=== PATIENT | female | born 1945 | race Caucasian/White ===

== ENCOUNTER 2021-04-19 18:47 | Inpatient (IN) | payer OTHER ==
[~2021-04-19] VITALS: Ht 162.6 cm; Wt 78.0 kg
[~2021-04-19 18:47] MED LIST: ASPIRIN EC81 MG PO; ATORVASTATIN CA20 MG PO; LOPRESSOR 25 MG25 MG PO; MACROBID 100 M100 M1 PO; NORVASC 5 MG TAB5 MG PO
[2021-04-19 19:32] LABS: HEMOGLOBIN 12.8 gm/dl (12.3-15.3); RED BLOOD COUNT 4.5 M/UL (4.00-5.10); WHITE BLOOD COUNT 4.3 K/UL (4.5-11.0)
[2021-04-19 20:04] LABS: BUN/CREATININE RATIO 15 (0-10)
[2021-04-20 05:13] LABS: HEMOGLOBIN 12.7 gm/dl (12.3-15.3); RED BLOOD COUNT 4.6 M/UL (4.00-5.10); WHITE BLOOD COUNT 2.9 K/UL (4.5-11.0)
[2021-04-20] MEDS ORDERED: DRISDOL1250 MCG PO (08:58)
[2021-04-20] MEDS ORDERED: KLONOPIN1 MG PO (08:58)
[2021-04-20] MEDS ORDERED: ZOLOFT50 MG PO (08:59)
[2021-04-20] MEDS ORDERED: ULTRAM50 MG PO (08:59)
[2021-04-20] MEDS ORDERED: NEURONTIN800 MG PO (08:59)
[2021-04-20] MEDS ORDERED: LIPITOR TAB 2020 MG PO (09:00)
[2021-04-20] MEDS ORDERED: PROAIR HFA8.5 GM INH (09:00)
[2021-04-20] MEDS ORDERED: LOPRESSOR 25 MG25 MG PO (09:01)
--- NOTE | 2021-04-21 02:36 | NUR ---
NOTIFIED PROJECT DEVELOPMENT DIRECTOR THAT PATIENT HAD AN ORDER FOR CONTINUOUS TELEMETRY AND PULSE OX. PROJECT DEVELOPMENT DIRECTOR STATED THAT WE WERE STILL OUT OF CONTINOUS PULSE OX CORDS.
[2021-04-22 14:08] LABS: HEMOGLOBIN 13.3 gm/dl (12.3-15.3); RED BLOOD COUNT 4.57 M/UL (4.00-5.10); WHITE BLOOD COUNT 4.4 K/UL (4.5-11.0)
[2021-04-23 09:07] LABS: HEMOGLOBIN 12.7 gm/dl (12.3-15.3); RED BLOOD COUNT 4.41 M/UL (4.00-5.10)
[2021-04-23 09:09] LABS: WHITE BLOOD COUNT 7.1 K/UL (4.5-11.0)
[2021-04-24 03:23] LABS: HEMOGLOBIN 12.1 gm/dl (12.3-15.3); RED BLOOD COUNT 4.19 M/UL (4.00-5.10); WHITE BLOOD COUNT 5.7 K/UL (4.5-11.0)
[2021-04-25 06:04] LABS: HEMOGLOBIN 12.4 gm/dl (12.3-15.3); RED BLOOD COUNT 4.32 M/UL (4.00-5.10); WHITE BLOOD COUNT 6.8 K/UL (4.5-11.0)
[2021-04-26 05:27] LABS: HEMOGLOBIN 12.2 gm/dl (12.3-15.3); RED BLOOD COUNT 4.2 M/UL (4.00-5.10)
[2021-04-26 09:03] LABS: BUN/CREATININE RATIO 35 (0-10)
[2021-04-27 04:25] LABS: HEMOGLOBIN 12.3 gm/dl (12.3-15.3); RED BLOOD COUNT 4.26 M/UL (4.00-5.10)
[2021-04-27 05:08] LABS: BUN/CREATININE RATIO 29 (0-10)
[2021-04-28 05:08] LABS: HEMOGLOBIN 12.4 gm/dl (12.3-15.3); RED BLOOD COUNT 4.34 M/UL (4.00-5.10); WHITE BLOOD COUNT 7.8 K/UL (4.5-11.0)
[2021-04-28 05:40] LABS: BUN/CREATININE RATIO 28 (0-10)
--- NOTE | 2021-04-28 11:45 | NUR ---
SPOKE WITH DR. DAN ABOUT PATIENT. STATED THAT SINCE PATIENT HAS HAD LITTLE TO NO RESPIRATORY IMPROVEMENT SINCE THIS PAST WEEKEND, SHE WOULD FEEL MORE COMFORTABLE PLACING PATIENT IN ICU TO BE MORE CLOSELY MONITORED. MD SPOKE WITH PATIENT'S FAMILY ABOUT POSSIBLE TRANSFER ONCE ICU BED BECAME AVAILABLE.
--- NOTE | 2021-04-28 14:26 | NUR ---
RN NOTIFIED PATIENT'S DAUGHTER CALEB OF PATIENT TRANSFER TO ICU AND TOLD DAUGHTER WHAT ROOM SHE WAS IN.
[2021-04-29 05:16] LABS: HEMOGLOBIN 12.1 gm/dl (12.3-15.3); RED BLOOD COUNT 4.22 M/UL (4.00-5.10); WHITE BLOOD COUNT 7.7 K/UL (4.5-11.0)
[2021-04-29 05:40] LABS: BUN/CREATININE RATIO 31 (0-10)
[2021-04-30 05:34] LABS: HEMOGLOBIN 11.8 gm/dl (12.3-15.3); RED BLOOD COUNT 4.09 M/UL (4.00-5.10); WHITE BLOOD COUNT 6.5 K/UL (4.5-11.0)
[2021-04-30 05:59] LABS: BUN/CREATININE RATIO 33 (0-10)
[2021-05-01 04:17] LABS: HEMOGLOBIN 12.1 gm/dl (12.3-15.3); RED BLOOD COUNT 4.19 M/UL (4.00-5.10); WHITE BLOOD COUNT 7.7 K/UL (4.5-11.0)
[2021-05-01 04:30] LABS: BUN/CREATININE RATIO 34 (0-10)
[2021-05-02 05:26] LABS: HEMOGLOBIN 12.5 gm/dl (12.3-15.3); RED BLOOD COUNT 4.32 M/UL (4.00-5.10); WHITE BLOOD COUNT 9.4 K/UL (4.5-11.0)
[2021-05-02 06:00] LABS: BUN/CREATININE RATIO 41 (0-10)
[2021-05-03 05:58] LABS: HEMOGLOBIN 12.9 gm/dl (12.3-15.3); RED BLOOD COUNT 4.49 M/UL (4.00-5.10); WHITE BLOOD COUNT 9.5 K/UL (4.5-11.0)
[2021-05-03 06:23] LABS: BUN/CREATININE RATIO 46 (0-10)
[2021-05-04 05:13] LABS: HEMOGLOBIN 13.2 gm/dl (12.3-15.3); RED BLOOD COUNT 4.52 M/UL (4.00-5.10); WHITE BLOOD COUNT 9.2 K/UL (4.5-11.0)
[2021-05-05 06:01] LABS: HEMOGLOBIN 13.8 gm/dl (12.3-15.3); RED BLOOD COUNT 4.72 M/UL (4.00-5.10); WHITE BLOOD COUNT 10.5 K/UL (4.5-11.0)
[2021-05-06 05:57] LABS: HEMOGLOBIN 13.4 gm/dl (12.3-15.3); RED BLOOD COUNT 4.57 M/UL (4.00-5.10); WHITE BLOOD COUNT 9.8 K/UL (4.5-11.0)
[2021-05-06 06:01] LABS: BUN/CREATININE RATIO 48 (0-10)
[2021-05-07 05:14] LABS: HEMOGLOBIN 12.3 gm/dl (12.3-15.3); RED BLOOD COUNT 4.36 M/UL (4.00-5.10)
[2021-05-07 05:17] LABS: WHITE BLOOD COUNT 16.3 K/UL (4.5-11.0)
[2021-05-07 05:29] LABS: BUN/CREATININE RATIO 35 (0-10)
[2021-05-08 03:48] LABS: HEMOGLOBIN 11.8 gm/dl (12.3-15.3); RED BLOOD COUNT 4.07 M/UL (4.00-5.10)
[2021-05-08 03:49] LABS: WHITE BLOOD COUNT 12.2 K/UL (4.5-11.0)
[2021-05-08 04:05] LABS: BUN/CREATININE RATIO 29 (0-10)
[2021-05-09 04:40] LABS: HEMOGLOBIN 11.2 gm/dl (12.3-15.3); RED BLOOD COUNT 3.86 M/UL (4.00-5.10); WHITE BLOOD COUNT 12.5 K/UL (4.5-11.0)
[2021-05-09 04:58] LABS: BUN/CREATININE RATIO 29 (0-10)
[2021-05-10 05:09] LABS: HEMOGLOBIN 10.7 gm/dl (12.3-15.3); RED BLOOD COUNT 3.66 M/UL (4.00-5.10)
[2021-05-10 05:22] LABS: WHITE BLOOD COUNT 7.6 K/UL (4.5-11.0)
[2021-05-10 05:27] LABS: BUN/CREATININE RATIO 35 (0-10)
[2021-05-11 05:54] LABS: HEMOGLOBIN 9.6 gm/dl (12.3-15.3); RED BLOOD COUNT 3.35 M/UL (4.00-5.10); WHITE BLOOD COUNT 7.1 K/UL (4.5-11.0)
[2021-05-11 06:11] LABS: BUN/CREATININE RATIO 42 (0-10)
[2021-05-12 05:40] LABS: HEMOGLOBIN 10.5 gm/dl (12.3-15.3); RED BLOOD COUNT 3.6 M/UL (4.00-5.10)
[2021-05-12 05:41] LABS: WHITE BLOOD COUNT 10.7 K/UL (4.5-11.0)
[2021-05-12 05:59] LABS: BUN/CREATININE RATIO 49 (0-10)
[2021-05-13 05:07] LABS: HEMOGLOBIN 10.5 gm/dl (12.3-15.3); RED BLOOD COUNT 3.57 M/UL (4.00-5.10); WHITE BLOOD COUNT 10.2 K/UL (4.5-11.0)
[2021-05-13 05:36] LABS: BUN/CREATININE RATIO 49 (0-10)
[2021-05-14 05:40] LABS: HEMOGLOBIN 10.6 gm/dl (12.3-15.3); RED BLOOD COUNT 3.62 M/UL (4.00-5.10)
[2021-05-14 05:45] LABS: WHITE BLOOD COUNT 13.7 K/UL (4.5-11.0)
[2021-05-14 06:06] LABS: BUN/CREATININE RATIO 52 (0-10)
[2021-05-15 05:34] LABS: HEMOGLOBIN 9.6 gm/dl (12.3-15.3); RED BLOOD COUNT 3.47 M/UL (4.00-5.10)
[2021-05-15 05:53] LABS: BUN/CREATININE RATIO 51 (0-10)
[2021-05-16 05:42] LABS: HEMOGLOBIN 9.3 gm/dl (12.3-15.3); RED BLOOD COUNT 3.36 M/UL (4.00-5.10); WHITE BLOOD COUNT 10.8 K/UL (4.5-11.0)
[2021-05-16 06:11] LABS: BUN/CREATININE RATIO 48 (0-10)
[2021-05-17 05:46] LABS: HEMOGLOBIN 9.2 gm/dl (12.3-15.3); RED BLOOD COUNT 3.33 M/UL (4.00-5.10); WHITE BLOOD COUNT 12.4 K/UL (4.5-11.0)
[2021-05-17 06:13] LABS: BUN/CREATININE RATIO 55 (0-10)
[2021-05-18 05:23] LABS: HEMOGLOBIN 9.4 gm/dl (12.3-15.3); RED BLOOD COUNT 3.37 M/UL (4.00-5.10); WHITE BLOOD COUNT 9.4 K/UL (4.5-11.0)
[2021-05-18 06:02] LABS: BUN/CREATININE RATIO 62 (0-10)
[2021-05-19 05:39] LABS: HEMOGLOBIN 8.4 gm/dl (12.3-15.3); WHITE BLOOD COUNT 7.1 K/UL (4.5-11.0)
[2021-05-19 05:40] LABS: RED BLOOD COUNT 2.99 M/UL (4.00-5.10)
[2021-05-19 05:54] LABS: BUN/CREATININE RATIO 74 (0-10)
[2021-05-20 05:55] LABS: HEMOGLOBIN 8.8 gm/dl (12.3-15.3); RED BLOOD COUNT 3.18 M/UL (4.00-5.10); WHITE BLOOD COUNT 6.6 K/UL (4.5-11.0)
[2021-05-20 06:23] LABS: BUN/CREATININE RATIO 75 (0-10)
[2021-05-21 06:42] LABS: WHITE BLOOD COUNT 5.3 K/UL (4.5-11.0)
[2021-05-21 06:52] LABS: HEMOGLOBIN 6.5 gm/dl (12.3-15.3); RED BLOOD COUNT 2.33 M/UL (4.00-5.10)
[2021-05-21 06:57] LABS: BUN/CREATININE RATIO 69 (0-10)
--- NOTE | 2021-05-21 11:54 | NUR ---
05/21/21 1015 UNABLE TO REACH DOCTOR FAMILY ABOUT BLOOD CONSENT AT THIS TIME
--- NOTE | 2021-05-21 12:05 | NUR ---
05/21/21 1135 UNABLE TO UBTAIN CONSENT FROM FAMILY FOR BLOOD AT THIS TIME
[2021-05-22 05:31] LABS: HEMOGLOBIN 10.6 gm/dl (12.3-15.3)
[2021-05-22 05:33] LABS: BUN/CREATININE RATIO 74 (0-10)
[2021-05-22 05:37] LABS: RED BLOOD COUNT 3.68 M/UL (4.00-5.10); WHITE BLOOD COUNT 8.3 K/UL (4.5-11.0)
[2021-05-23 05:49] LABS: HEMOGLOBIN 10.5 gm/dl (12.3-15.3); RED BLOOD COUNT 3.7 M/UL (4.00-5.10)
[2021-05-23 06:09] LABS: BUN/CREATININE RATIO 67 (0-10)
--- NOTE | 2021-05-24 02:38 | NUR ---
0124-NOTIFIED DR GONZALEZ THAT PATIENTS SATS WERE DROPPING INTO THE 70'S ON VENT AT 100% ORDERS TO BAG PATIENT, INCREASE PEEP, AND GET AN ABG. 0145- NOTIFIED DR GONZALEZ THAT SATS WERE ONLY IN THE 80'S WITH PREVIOUS ORDERS. ORDERS TO GIVE ZEMURON IVP. 0201-NOTIFIED DR GONZALEZ THAT IVP ZEMURON HELPED, ORDER TO START PATIENT ON A ZEMURON DRIP. PATIENT VENT SETTINGS CHANGED TO PEEP OF 13 RATE OF 30. NOTIFIED FAMILY OF PATIENTS CONDITON AT 0139 AND EXPLAINED TO THEM THAT WE MAY END UP HAVING TO CODE PATIENT CLARIFIED THAT THEY DID WANT HER TO BE A FULL CODE. NOTIFIED FAMILY OF IMPROVED CONDITION AT 0212.
[2021-05-24 05:43] LABS: HEMOGLOBIN 8.7 gm/dl (12.3-15.3); WHITE BLOOD COUNT 6.3 K/UL (4.5-11.0)
[2021-05-24 05:44] LABS: RED BLOOD COUNT 3.07 M/UL (4.00-5.10)
[2021-05-24 06:26] LABS: BUN/CREATININE RATIO 65 (0-10)
[2021-05-24 10:18] LABS: HEMOGLOBIN 8.4 gm/dl (12.3-15.3); RED BLOOD COUNT 2.94 M/UL (4.00-5.10); WHITE BLOOD COUNT 6.5 K/UL (4.5-11.0)
[2021-05-24 18:16] LABS: HEMOGLOBIN 8.2 gm/dl (12.3-15.3)
[2021-05-25 05:41] LABS: HEMOGLOBIN 7.2 gm/dl (12.3-15.3); WHITE BLOOD COUNT 5.3 K/UL (4.5-11.0)
[2021-05-25 05:42] LABS: RED BLOOD COUNT 2.51 M/UL (4.00-5.10)
[2021-05-25 06:01] LABS: BUN/CREATININE RATIO 58 (0-10)
--- NOTE | 2021-05-25 08:45 | NUR ---
0830 - SPOKE WITH PATIENTS SON AKIRA CALLED CONCERNTING PATIENT CONDITION. UPDATED AND SON STATED HE AND HIS SISTER HAD DISCUSSED PT CODE STATUS AND WOULD LIKE TO MAKE HER A DNR, NO CHEST COMPRESSIONS, NO MEDS, NO SHOCKS. DR COFFEY NOTIFIED. ORDER PLACED. WITNESSED BY BRENDEN PACHECO RN AND ANGELINA CONTRERAS RN
== END 2021-05-26 10:19 | disposition expired | DRG 870 ==
LOC: ER1 18:47 → MED SURG 4 20:59 → CCU 20:59 → CDU 20:59 → MED SURG 4 04-20 09:29 → CCU 04-28 14:14
PROVIDERS: Internal Medicine; Internal Medicine Pulmonary Disease; Student in an Organized Health Care Education/Training Program; Surgery; ADMIT Internal Medicine
PROC: XW033E5 Introduction of Remdesivir Anti-infective into Peripheral Vein, Percutaneous Approach, New Technology Group 5 (ICD-10-PCS; 2021-04-19)
PROC: 3E0333Z Introduction of Anti-inflammatory into Peripheral Vein, Percutaneous Approach (ICD-10-PCS; 2021-04-19)
PROC: 8E0ZXY6 Isolation (ICD-10-PCS; 2021-04-19)
PROC: 5A0945A Assistance with Respiratory Ventilation, 24-96 Consecutive Hours, High Flow/Velocity Cannula (ICD-10-PCS; 2021-04-19)
PROC: B24BZZ4 Ultrasonography of Heart with Aorta, Transesophageal (ICD-10-PCS; 2021-04-20)
PROC: 5A1955Z Respiratory Ventilation, Greater than 96 Consecutive Hours (ICD-10-PCS; 2021-05-06)
PROC: 02HV33Z Insertion of Infusion Device into Superior Vena Cava, Percutaneous Approach (ICD-10-PCS; 2021-05-06)
PROC: B548ZZA Ultrasonography of Superior Vena Cava, Guidance (ICD-10-PCS; 2021-05-06)
PROC: 0BH17EZ Insertion of Endotracheal Airway into Trachea, Via Natural or Artificial Opening (ICD-10-PCS; 2021-05-06)
PROC: 5A09457 Assistance with Respiratory Ventilation, 24-96 Consecutive Hours, Continuous Positive Airway Pressure (ICD-10-PCS; 2021-05-06)
PROC: 0DH63UZ Insertion of Feeding Device into Stomach, Percutaneous Approach (ICD-10-PCS; 2021-05-08)
PROC: 3E0G76Z Introduction of Nutritional Substance into Upper GI, Via Natural or Artificial Opening (ICD-10-PCS; 2021-05-08)
PROC: 3E033XZ Introduction of Vasopressor into Peripheral Vein, Percutaneous Approach (ICD-10-PCS; principal; 2021-05-09)
PROC: 30233R1 Transfusion of Nonautologous Platelets into Peripheral Vein, Percutaneous Approach (ICD-10-PCS; 2021-05-21)
DX: A41.89 Other specified sepsis (principal); U07.1 COVID-19; J80 Acute respiratory distress syndrome; J12.82 Pneumonia due to coronavirus disease 2019; J15.9 Unspecified bacterial pneumonia; G93.41 Metabolic encephalopathy; R65.21 Severe sepsis with septic shock; J44.0 Chronic obstructive pulmonary disease with (acute) lower respiratory infection; J44.1 Chronic obstructive pulmonary disease with (acute) exacerbation; I69.351 Hemiplegia and hemiparesis following cerebral infarction affecting right dominant side; C18.9 Malignant neoplasm of colon, unspecified; I50.32 Chronic diastolic (congestive) heart failure; N17.9 Acute kidney failure, unspecified; E87.0 Hyperosmolality and hypernatremia; I47.1 Supraventricular tachycardia; E87.2 Acidosis; Z51.5 Encounter for palliative care; F03.90 Unspecified dementia, unspecified severity, without behavioral disturbance, psychotic disturbance, mood disturbance, and anxiety; E83.39 Other disorders of phosphorus metabolism; E88.09 Other disorders of plasma-protein metabolism, not elsewhere classified; T38.0X5A Adverse effect of glucocorticoids and synthetic analogues, initial encounter; I11.0 Hypertensive heart disease with heart failure; F17.210 Nicotine dependence, cigarettes, uncomplicated; E86.0 Dehydration; G89.4 Chronic pain syndrome; D69.6 Thrombocytopenia, unspecified; L89.152 Pressure ulcer of sacral region, stage 2; I48.0 Paroxysmal atrial fibrillation; F41.9 Anxiety disorder, unspecified; E87.8 Other disorders of electrolyte and fluid balance, not elsewhere classified; L89.310 Pressure ulcer of right buttock, unstageable; R53.81 Other malaise; Z79.01 Long term (current) use of anticoagulants; Z99.81 Dependence on supplemental oxygen; I69.392 Facial weakness following cerebral infarction; Z74.01 Bed confinement status
CPT/HCPCS: ECHO; 31500; 36415; 36430; 36600; 70450; 71045; 74018; 80048; 80053; 81001; 82550; 82553; 82728; 82803; 83605; 83615; 83735; 83874; 83880; 84100; 84132; 84439; 84443; 84484; 85014; 85018; 85025; 85027; 85379; 85384; 86140; 86850; 86900; 86901; 86920; 87040; 87070; 87205; 92526; 92610; 93005; 93306; 94003; 94640; 94660; 94664; 94760; 99285; A6212; C1751; C9113; J0330; J0456; J1100; J1120; J1205; J1650; J1940; J2020; J2060; J2185; J2248; J2250; J2370; J2405; J2543; J2704; J2765; J2920; J3010; J7030; J7040; J7050; J7070; P9016; P9047; U0002